=== PATIENT | male | born 1965 | race Caucasian/White ===

== ENCOUNTER 2018-06-01 05:55 | Outpatient (CLI) | payer OTHER | END 2018-06-01 05:56 | disposition home or self-care (01) | LOC: CARDIO 05:55 | DX: R07.89 Other chest pain (principal) ==

== ENCOUNTER 2018-07-01 07:05 | Outpatient (CLI) | payer OTHER | END 2018-07-01 07:06 | disposition home or self-care (01) | LOC: RAD 07:05 ==